=== PATIENT | male | born 1985 | race African-American/Black ===

== ENCOUNTER 2023-01-18 18:18 | Inpatient (IN) | payer MEDICAID ==
[~2023-01-18] VITALS: Ht 177.8 cm; Wt 79.5 kg
[2023-01-18] MEDS ORDERED: piperacillin/tazo 3.375gm/50ml 50 ML IV ONE (19:20)
[2023-01-18] MEDS ORDERED: vancomycin/NS 1 GM ADD-VANTAGE 250 ML IV ONE (19:20)
[2023-01-18] MEDS ORDERED: normal saline 1000ML IV soln IV ONE (19:20)
[2023-01-18 19:59] LABS: BASOPHILS # (AUTO) 0.2 X10'3 (0-0.2); BASOPHILS % (AUTO) 1.7 % (0-1); EOSINOPHILS # (AUTO) 0.3 X10'3 (0-0.9); EOSINOPHILS % (AUTO) 2.6 % (0-6); HEMATOCRIT 42.9 % (42.0-52.0); HEMOGLOBIN 14.5 g/dl (14.0-17.9); LYMPHOCYTES # (AUTO) 3.1 X10'3 (1.1-4.8); LYMPHOCYTES % (AUTO) 24.9 % (21-51); MEAN CORPUSCULAR HEMOGLOBIN 26.6 PG (27.0-31.0); MEAN CORPUSCULAR HGB CONC 33.8 g/dL (33.0-36.5); MEAN CORPUSCULAR VOLUME 78.7 FL (78-98); MONOCYTES # (AUTO) 1.1 X10'3 (0-0.9); MONOCYTES % (AUTO) 9.1 % (2-12); NEUTROPHILS # (AUTO) 7.7 X10'3 (1.8-7.7); NEUTROPHILS % (AUTO) 61.7 % (42-75); PLATELET COUNT 357 X10'3 (140-440); RED BLOOD COUNT 5.44 X10'6 (4.70-6.10); RED CELL DISTRIBUTION WIDTH 14.5 % (11.5-14.5); WHITE BLOOD COUNT 12.5 X10'3 (4.5-11.0)
[2023-01-18 20:15] LABS: ALANINE AMINOTRANSFERASE 24 U/L (12-78); ALBUMIN 3.6 G/DL (3.4-5.0); ALBUMIN/GLOBULIN RATIO 0.8 (1.1-1.5); ALKALINE PHOSPHATASE 171 IU/L (46-116); ANION GAP 10 (8-16); ASPARTATE AMINO TRANSFERASE 14 U/L (10-37); BILIRUBIN,TOTAL 0.3 MG/DL (0.1-1.0); BLOOD UREA NITROGEN 6 MG/DL (7-18); BUN/CREATININE RATIO 6.1 (10.0-20.0); C-REACTIVE PROTEIN 2.79 MG/DL (0.0-0.5); CALCIUM 8.9 MG/DL (8.5-10.1); CHLORIDE 101 MMOL/L (99-107); CREATININE 0.99 MG/DL (0.60-1.10); GLUCOSE 74 MG/DL (70-104); MAGNESIUM 1.8 MG/DL (1.5-2.4); POTASSIUM 3.1 MMOL/L (3.5-5.1); SODIUM 139 MMOL/L (135-145); TOTAL CARBON DIOXIDE 27.7 MMOL/L (24-32); TOTAL PROTEIN 8.2 G/DL (6.4-8.2); eGFR 86 ML/MIN
[2023-01-18] MEDS ORDERED: LIDOcaine 1% 30ml preserv. free vial IJ ONE (20:15)
[2023-01-18] MEDS ORDERED: LIDOcaine 1% (10mg/ml)w/preservative inj. 20ml MDV SQ ONE (20:35)
[2023-01-18] MEDS ORDERED: potassium Cl 40MEQ/1/2NS 520ml 520 ML IV ONE (20:40)
[2023-01-19] MEDS ORDERED: potassium Cl 40MEQ/1/2NS 520ml 520 ML IV PRN (00:10)
[2023-01-19] MEDS ORDERED: magnesium 2GM in 50ml NS 50 ML IV PRN (00:10)
[2023-01-19] MEDS ORDERED: cefepime 1GM/NS ADD-VANTAGE 100 ML IV ONE (00:10)
[2023-01-19] MEDS ORDERED: magnesium 4gm in 100ml NS 100 ML IV PRN (00:10)
[2023-01-19] MEDS ORDERED: magnesium Cl slow-release 64mg tablet PO PRN (00:10)
[2023-01-19] MEDS ORDERED: morphine 2 MG/ML inj. syringe IV PRN (00:10)
[2023-01-19] MEDS ORDERED: potassium Cl 20 mEq SR tablet PO PRN (00:10)
[2023-01-19] MEDS ORDERED: acetaminophen 325mg tablet PO PRN (00:10)
[2023-01-19] MEDS ORDERED: ondansetron/PF 4mg/2ml inj IV PRN (00:10)
[2023-01-19] MEDS: normal saline 1000ml 1,000 ML IV SCH ×3 (00:46→20:10)
[2023-01-19 02:50] LABS: MAGNESIUM 1.6 MG/DL (1.5-2.4); POTASSIUM 3.4 MMOL/L (3.5-5.1)
[2023-01-19] MEDS ORDERED: vancomycin/NS 1 GM ADD-VANTAGE 250 ML IV SCH (08:00)
[2023-01-19] MEDS ORDERED: VANCOmycin 1250MG/NS 250ml Bag 250 ML IV SCH (08:00)
[2023-01-19] MEDS: K and/or MAG REPLACEMENT MC SCH ×2 (08:12→20:06)
[2023-01-19] MEDS: potassium Cl 20 mEq SR tablet PO PRN ×4 (08:46→20:31)
--- NOTE | 2023-01-19 09:41 | NUR ---
patients girlfriend brought in food for him, was educated on NPO status.
--- NOTE | 2023-01-19 13:09 | NUR ---
patients potassium this am was 3.4, started potassium protocol. patient received first dose, went in with second dose, and patient refused to take med, education provided, continued to refuse.
[2023-01-19 15:00] VITALS: BP 111/48
--- NOTE | 2023-01-19 15:45 | NUR ---
PAGER ID: [phone] MESSAGE: Isabel [phone] - RE: [facility] room 4022B - patient on Ortho floor. Can he have a diet or keep NPO?
[2023-01-19 18:00] VITALS: BP 117/71
--- NOTE | 2023-01-19 18:38 | NUR ---
Problems reprioritized. Patient report given, questions answered & plan of care reviewed with JESSICA Castro.
--- NOTE | 2023-01-19 21:15 | NUR ---
Went into room to assess patient and hang his Vancomycin iv as ordered. He was not in the room or the bathroom or on the 4th floor. I was told by his nurse that he had been on the phone discussing ordering a pizza and having it delivered to the ER so I called them and they did not see anybody by his description. I ran downstairs to find him and he was not in the ER waiting room or outside in parking lot that I could see. I talked to the pbx agent and he said he saw a man fitting pt's description of leaving the hospital about 25 minutes prior to me searching for him. As I was about to leave the [facility] I saw pt coming back in the hospital with his girlfriend by him. I asked where he had gone and he said " I had to move the car" I told him that he can't leave the floor with an iv in him and that can qualify for him being discharged. He then came back to his room with the girlfriend, I explained again that visiting hours are over at 8pm and that she would need to leave. He said she was waiting on a ride so I let her stay for the ride. I was able to flush the right IJ and I connected him to the Vancomycin. He kept getting up/down and the iv was not running well so dressing was taken down and noted that the tubing was kinked at site and this was fixed and it is now working. He appeared tired once he got back to room and his pupils are 2mm in size. We are going to continue to monitor him and make sure he does not leave the floor.
[2023-01-19] MEDS: VANCOmycin 1250MG/NS 250ml Bag 250 ML IV SCH (21:28)
[2023-01-19 22:00] VITALS: BP 118/80
--- NOTE | 2023-01-19 22:00 | NUR ---
prosthesis to right leg so no dorsalis pedis pulse to be palpated. Addendum: 01/20/23 at 0728 by Bia Reid RN Amended: Links added.
[2023-01-20] MEDS: normal saline 1000ml 1,000 ML IV SCH (02:41)
[2023-01-20 06:00] VITALS: BP 117/71
--- NOTE | 2023-01-20 06:18 | NUR ---
Problems reprioritized. Patient report given, questions answered & plan of care reviewed with Marley LOPEZ.
--- NOTE | 2023-01-20 06:44 | NUR ---
Patient in room ORTHO 4022. I have received report from JESSICA Castro and had the opportunity to ask questions and assume patient care.
--- NOTE | 2023-01-20 07:28 | NUR ---
Agree with [employer]TER assessment except where I documented my findings.
[2023-01-20] MEDS ORDERED: VANCOMYCIN LEVEL IV ONE ×2 (07:30→20:30)
[2023-01-20] MEDS: K and/or MAG REPLACEMENT MC SCH (08:00)
[2023-01-20] MEDS: VANCOmycin 1250MG/NS 250ml Bag 250 ML IV SCH (09:22)
[2023-01-20 10:00] VITALS: BP 118/76
--- NOTE | 2023-01-20 12:47 | NUR ---
Malnutrition Consult: Pt reports 2-13 pounds wt loss w/ decreased appetite [employer] per RN Malnutrition Screen. Pt PO 100% first regular diet meal last night pending PO intake documentation today admit DX L hand cellulitis and L third finger abscess per EMR. Pt seen by RD at bedside; pt reports brief period of decreased intake though appetite currently at baseline eating food brought from outside and denies nutrition questions/concerns. Pt appears WD/WN during RD visit w/ mild weakness, and current standing scaled wt appropriate; does not meet malnutrition criteria at this time. Addendum: 01/20/23 at [address] Amended: Links added.
[2023-01-20 13:26] LABS: BASOPHILS # (AUTO) 0.1 X10'3 (0-0.2); BASOPHILS % (AUTO) 0.5 % (0-1); EOSINOPHILS # (AUTO) 0.2 X10'3 (0-0.9); EOSINOPHILS % (AUTO) 1.6 % (0-6); HEMATOCRIT 39.1 % (42.0-52.0); LYMPHOCYTES # (AUTO) 1.6 X10'3 (1.1-4.8); LYMPHOCYTES % (AUTO) 15.1 % (21-51); MEAN CORPUSCULAR HEMOGLOBIN 26.5 PG (27.0-31.0); MEAN CORPUSCULAR HGB CONC 33.2 g/dL (33.0-36.5); MEAN CORPUSCULAR VOLUME 79.8 FL (78-98); MEAN PLATELET VOLUME 7.9 FL (7.4-10.4); MONOCYTES # (AUTO) 0.6 X10'3 (0-0.9); MONOCYTES % (AUTO) 5.4 % (2-12); NEUTROPHILS # (AUTO) 8.1 X10'3 (1.8-7.7); NEUTROPHILS % (AUTO) 77.4 % (42-75); PLATELET COUNT 364 X10'3 (140-440); RED CELL DISTRIBUTION WIDTH 15.1 % (11.5-14.5); WHITE BLOOD COUNT 10.5 X10'3 (4.5-11.0)
[2023-01-20] MEDS ORDERED: AMOX-117 PO (14:41)
--- NOTE | 2023-01-20 16:23 | NUR ---
Patient discharged home with friend with all belongings. Discharge paperwork was reviewed with patient whom verbalized understanding.
== END 2023-01-20 16:24 | disposition home or self-care (01) | DRG 383 ==
LOC: ER 18:19 → ED HOLD 22:03 → ORTHO 4S 01-19 14:44
PROVIDERS: ADMIT Internal Medicine; ATTEND Internal Medicine
PROC: 0X9K0ZZ Drainage of Left Hand, Open Approach (ICD-10-PCS; principal; 2023-01-18)
DX: L03.012 Cellulitis of left finger (principal); E87.20 Acidosis, unspecified; D72.829 Elevated white blood cell count, unspecified; E87.6 Hypokalemia; M65.9 Synovitis and tenosynovitis, unspecified
CPT/HCPCS: 36415; 73130; 80053; 83605; 83735; 84132; 84145; 85025; 85651; 86140; 87040; 87081; 99285; A6258; G0378; J0692; J2543; J3370; J3480; J7030

== ENCOUNTER 2023-08-08 11:30 | Emergency (ER) | payer MEDICAID ==
[~2023-08-08] VITALS: Ht 172.7 cm; Wt 72.0 kg
[2023-08-08 11:39] VITALS: TEMP 98
[2023-08-08 13:06] VITALS: BP 108/69; PULSE 122; O2SAT 98
[2023-08-08 13:17] VITALS: RESP 16
== END 2023-08-08 15:28 | disposition left against medical advice (07) ==
LOC: ER 11:31
DX: R55 Syncope and collapse (principal); R56.9 Unspecified convulsions; K59.00 Constipation, unspecified; R42 Dizziness and giddiness; F17.210 Nicotine dependence, cigarettes, uncomplicated; F15.90 Other stimulant use, unspecified, uncomplicated; Z98.890 Other specified postprocedural states
CPT/HCPCS: 99284

== ENCOUNTER 2023-08-08 18:33 | Emergency (ER) | payer MEDICAID ==
[~2023-08-08] VITALS: Ht 177.8 cm; Wt 91.6 kg
[2023-08-08 19:16] VITALS: BP 130/90; PULSE 99; RESP 18; TEMP 97.8; O2SAT 98
== END 2023-08-08 21:15 | disposition left against medical advice (07) ==
LOC: ER 18:34
DX: Z02.79 Encounter for issue of other medical certificate (principal); Z53.21 Procedure and treatment not carried out due to patient leaving prior to being seen by health care provider
CPT/HCPCS: 99281

== ENCOUNTER 2023-10-15 11:28 | Emergency (ER) | payer MEDICAID ==
[~2023-10-15] VITALS: Ht 175.3 cm; Wt 75.0 kg
[2023-10-15 11:29] VITALS: TEMP 98
[2023-10-15 13:54] LABS: BASOPHILS # (AUTO) 0.1 X10'3 (0-0.2); BASOPHILS % (AUTO) 0.5 % (0-1); EOSINOPHILS # (AUTO) 0.3 X10'3 (0-0.9); EOSINOPHILS % (AUTO) 1.2 % (0-6); HEMATOCRIT 38.6 % (42.0-52.0); HEMOGLOBIN 12.7 g/dl (14.0-17.9); LYMPHOCYTES # (AUTO) 1.6 X10'3 (1.1-4.8); LYMPHOCYTES % (AUTO) 6.8 % (21-51); MEAN CORPUSCULAR HEMOGLOBIN 26.4 PG (27.0-31.0); MEAN CORPUSCULAR VOLUME 80.1 FL (78-98); MEAN PLATELET VOLUME 7.7 FL (7.4-10.4); MONOCYTES # (AUTO) 1.6 X10'3 (0-0.9); NEUTROPHILS # (AUTO) 19.5 X10'3 (1.8-7.7); NEUTROPHILS % (AUTO) 84.5 % (42-75); PLATELET COUNT 379 X10'3 (140-440); RED BLOOD COUNT 4.82 X10'6 (4.70-6.10); RED CELL DISTRIBUTION WIDTH 15.1 % (11.5-14.5); WHITE BLOOD COUNT 23.1 X10'3 (4.5-11.0)
[2023-10-15] MEDS ORDERED: SULF1TAB45 PO (13:59)
[2023-10-15] MEDS ORDERED: CEPH-585 PO (13:59)
[2023-10-15 14:03] LABS: ALBUMIN 2.8 G/DL (3.4-5.0); ANION GAP 6 (8-16); BLOOD UREA NITROGEN 7 MG/DL (7-18); BUN/CREATININE RATIO 8.6 (10.0-20.0); CALCIUM 8.7 MG/DL (8.5-10.1); CHLORIDE 104 MMOL/L (99-107); CREATININE 0.81 MG/DL (0.60-1.10); GLUCOSE 125 MG/DL (70-104); POTASSIUM 4.4 MMOL/L (3.5-5.1); SODIUM 139 MMOL/L (135-145); TOTAL CARBON DIOXIDE 29.5 MMOL/L (24-32); eCRCL 126 ML/MIN; eGFR > 90 ML/MIN
[2023-10-15] MEDS: piperacillin/tazo 3.375gm/50ml 50 ML IV ONE (14:10)
[2023-10-15] MEDS: LIDOcaine 1% W/epiNEPHrine 1:100,000 20ml vial IJ ONE (14:10)
[2023-10-15] MEDS: HYDROcodone/acetaminophen 10/325mg tab PO ONE (14:11)
[2023-10-15] MEDS: sulfamethoxazole/trimethoprim DS (800/160mg) tablet PO ONE (14:11)
[2023-10-15] MEDS: normal saline 1000ML IV soln IVB ONE (14:20)
[2023-10-15 16:45] VITALS: RESP 16
[2023-10-15] MEDS: morphine 4 MG/ML inj SYRINge IV ONE (16:45)
[2023-10-15 17:00] VITALS: BP 107/52; PULSE 88; O2SAT 95
== END 2023-10-15 18:42 | disposition home or self-care (01) ==
LOC: ER 11:28
DX: L02.415 Cutaneous abscess of right lower limb (principal); Z79.899 Other long term (current) drug therapy
CPT/HCPCS: 10060; 36415; 72192; 80048; 84145; 85025; 96365; 96375; 99285; A6266; J2270; J2543; J3490; J7030